=== PATIENT | female | born 1955 | race African-American/Black ===

== ENCOUNTER 2017-07-18 08:06 | Day surgery (SDC) | payer OTHER ==
[~2017-07-18 08:06] MED LIST: CEFAZOLIN 2 GM/50 ML (PMX) 50 ML IVPB; SOD CHLORIDE 0.9% 1,000 ML IV
[2017-07-18 09:24] LABS: ADD MAN DIFF? NO
[2017-07-18 09:29] LABS: BASOPHIL # 0.1 10^3/ul (0.0-0.1); BASOPHILS % 0.8 % (0.0-2.0); EOSINOPHILS # 0.1 10^3/ul (0.0-0.5); EOSINOPHILS % 1.5 % (0.0-7.0); HEMATOCRIT 33.8 % (37.0-47.0); HEMOGLOBIN 11.8 g/dl (12.0-16.0); LYMPHOCYTES # 1.8 10^3/ul (0.8-2.9); LYMPHOCYTES % 30.5 % (15.0-51.0); MEAN CORPUSCULAR HEMOGLOBIN 31.4 pg (29.0-33.0); MEAN CORPUSCULAR HGB CONC 34.9 g/dl (32.0-37.0); MEAN CORPUSCULAR VOLUME 89.9 fl (82.0-101.0); MONOCYTE # 0.4 10^3/ul (0.3-0.9); NEUTROPHIL # 3.6 10^3/ul (1.6-7.5); PLATELET COUNT 213 10^3/UL (140-415); RED BLOOD COUNT 3.76 10^6/ul (4.20-5.40); RED CELL DISTRIBUTION WIDTH 12.1 % (11.5-14.5)
[2017-07-18 09:43] LABS: INR 1.01; PROTIME 13.4 Sec (11.9-14.9)
[2017-07-18 09:45] LABS: ALANINE AMINOTRANSFERASE 27 IU/L (13-69); ALBUMIN 3.8 g/dl (3.3-4.9); ALBUMIN/GLOBULIN RATIO 1.26; ALKALINE PHOSPHATASE 79 IU/L (42-121); ANION GAP 15 (8-16); ASPARTATE AMINO TRANSFERASE 21 IU/L (15-46); BILIRUBIN,INDIRECT 0.4 mg/dl (0-1.1); BILIRUBIN,TOTAL 0.4 mg/dl (0.2-1.3); CARBON DIOXIDE 31 mmol/L (21-31); CHLORIDE 102 mmol/L (97-110); GLUCOSE 202 mg/dl (70-220); TOTAL PROTEIN 6.8 g/dl (6.1-8.1)
[2017-07-18 09:47] LABS: BLOOD UREA NITROGEN 12 mg/dl (7-20); CALCIUM 9.1 mg/dl (8.4-10.2); CREATININE 0.97 mg/dl (0.44-1.00); POTASSIUM 3.8 mmol/L (3.5-5.1); SODIUM 144 mmol/L (135-144)
[2017-07-18] MEDS ORDERED: MIDAZOLAM 1 MG/ML 2 ML INJ (10:18)
[2017-07-18] MEDS ORDERED: LIDOCAINE 1% (MDV) 20 ML INJ (10:18)
[2017-07-18] MEDS ORDERED: PROPOFOL 100 ML (10:18)
[2017-07-18] MEDS ORDERED: SUCCINYLCHOLINE CHLORIDE 100 MG/5 ML SYG IV (11:05)
[2017-07-18] MEDS ORDERED: CEFAZOLIN 1 GM INJ (11:05)
[2017-07-18] MEDS ORDERED: ONDANSETRON 4 MG INJ (11:06)
[2017-07-18] MEDS ORDERED: PHENYLephrine (100 MCG/ML) 5ML SYG (11:19)
[2017-07-18] MEDS: BUPIVACAINE 0.5%/EPI (SDV) 30 ML INJ (11:56)
== END 2017-07-18 13:45 | disposition home or self-care (01) ==
LOC: SDS 08:06
DX: D17.0 Benign lipomatous neoplasm of skin and subcutaneous tissue of head, face and neck (principal); I10 Essential (primary) hypertension; E11.9 Type 2 diabetes mellitus without complications; E78.5 Hyperlipidemia, unspecified
CPT/HCPCS: 14040; 71045; 80053; 82962; 85025; 85610; 85730; 88307; 93005